=== PATIENT | male | born 1995 | race Caucasian/White ===

== ENCOUNTER 2018-09-23 11:24 | Emergency (ER) | payer OTHER ==
[2018-09-23 14:44] LABS: ADD MAN DIFF? NO
[2018-09-23 14:49] LABS: WHITE BLOOD COUNT 9.6 10^3/ul (4.8-10.8)
[2018-09-23 14:49] LABS: BASOPHILS % 0.3 % (0.0-2.0); EOSINOPHILS % 0.1 % (0.0-7.0); HEMATOCRIT 46.2 % (42.0-52.0); HEMOGLOBIN 15.9 g/dl (14.0-18.0); LYMPHOCYTES # 0.7 10^3/ul (0.8-2.9); LYMPHOCYTES % 7.5 % (18.0-55.0); MEAN CORPUSCULAR HEMOGLOBIN 30.2 pg (29.0-33.0); MEAN CORPUSCULAR HGB CONC 34.4 g/dl (32.0-37.0); MEAN CORPUSCULAR VOLUME 87.8 fl (72.0-104.0); MEAN PLATELET VOLUME 10.4 fl (7.4-10.4); MONOCYTE # 0.9 10^3/ul (0.3-0.9); NEUTROPHIL # 7.9 10^3/ul (1.6-7.5); NEUTROPHILS % 82.7 % (30.0-74.0); PLATELET COUNT 179 10^3/UL (140-415); RED BLOOD COUNT 5.26 10^6/ul (4.70-6.10); RED CELL DISTRIBUTION WIDTH 12.3 % (11.5-14.5)
[2018-09-23 15:10] LABS: ALANINE AMINOTRANSFERASE 22 IU/L (13-69); ALBUMIN 4.9 g/dl (3.3-4.9); ALBUMIN/GLOBULIN RATIO 1.53; ALKALINE PHOSPHATASE 61 IU/L (42-121); ANION GAP 11 (5-13); ASPARTATE AMINO TRANSFERASE 25 IU/L (15-46); BILIRUBIN,INDIRECT 0.7 mg/dl (0-1.1); BILIRUBIN,TOTAL 0.7 mg/dl (0.2-1.3); BLOOD UREA NITROGEN 12 mg/dl (7-20); CALCIUM 9.9 mg/dl (8.4-10.2); CARBON DIOXIDE 25 mmol/L (21-31); CHLORIDE 100 mmol/L (97-110); CREATININE 0.78 mg/dl (0.61-1.24); Estimated GFR > 60 mL/min (>60); GLUCOSE 114 mg/dl (70-220); POTASSIUM 4.3 mmol/L (3.5-5.1); SODIUM 136 mmol/L (135-144); TOTAL PROTEIN 8.1 g/dl (6.1-8.1)
[2018-09-23 15:42] LABS: D-DIMER < 220.00 ng/ml (<460)
[2018-09-23] MEDS: CEFTRIAXONE 1 GM INJ IM (16:07)
== END 2018-09-23 16:28 | disposition home or self-care (01) ==
LOC: FTE 11:24
DX: M79.605 Pain in left leg (principal); L03.116 Cellulitis of left lower limb; R40.2412 Glasgow coma scale score 13-15, at arrival to emergency department
CPT/HCPCS: 80053; 85025; 85378; 93005; 93971; 96372; 99285-25

== ENCOUNTER 2018-09-24 22:37 | Emergency (ER) | payer OTHER ==
[2018-09-25] MEDS ORDERED: CLINDAMYCIN 600 MG INJ IM (00:30)
[2018-09-25] MEDS: CLINDAMYCIN 900 MG INJ IM (00:48)
[2018-09-25] MEDS ORDERED: CLINDAMYCIN 900 MG INJ IM (01:00)
== END 2018-09-25 01:03 | disposition home or self-care (01) ==
LOC: FTE 22:37
DX: I89.1 Lymphangitis (principal)
CPT/HCPCS: 96372; 99284-25

== ENCOUNTER 2019-03-05 17:53 | Emergency (ER) | payer MEDICAID, OTHER | END 2019-03-05 21:37 | disposition home or self-care (01) | LOC: FTE 21:37 | DX: H72.91 Unspecified perforation of tympanic membrane, right ear (principal) | CPT/HCPCS: 99282; Z7502 ==